=== PATIENT | male | born 1985 | race Two or more races ===

== ENCOUNTER 2018-05-07 22:18 | Emergency (ER) | payer SELFPAY ==
[~2018-05-07] VITALS: Ht 170.2 cm; Wt 63.5 kg
[2018-05-07] MEDS ORDERED: fentaNYL PF VIAL 100 MCG/2 ML VIAL IV ONE (23:30)
[2018-05-08] MEDS ORDERED: KETAMINE HCL 500 MG/10 ML VIAL. IV ONE
[2018-05-08] MEDS ORDERED: IV NORMAL SALINE 1000ML BAG 1,000 ML IV ONE
[2018-05-08] MEDS ORDERED: fentaNYL PF VIAL 100 MCG/2 ML VIAL IV ONE
--- NOTE | 2018-05-08 00:06 | RAD ---
Examination: WRIST 3V LEFT History: LEFT WRIST PAIN AFTER FALL Comparison/Correlation: None Findings: Total 3 images of the left wrist were obtained. Transverse comminuted fracture through the distal radial metaphysis is present. Volar angulation is noted. Dorsal displacement of the distal fracture fragments by one half of the metaphysis noted. Intra-articular extension noted. Carpal bones are unremarkable on images provided. Impression: Displaced distal radial metaphyseal comminuted fracture with intra-articular extension. Electronically signed by: Polo Andres MD (05/08/2018 12:02 AM) [facility]
--- NOTE | 2018-05-08 00:13 | PHYS DOC ---
Past Medical History Past Medical History: No Pertinent History Past Surgical History: No Surgical History Alcohol Use: Occasionally Drug Use: None Adult General Chief Complaint Chief Complaint: UPPER EXTREMITY INJURY HPI HPI 32-year-old male presents with left wrist pain and deformity status post mechanical slip and fall approximate 6 feet landing on his arm which occurred at 1300 today. Patient denies head trauma or loss of consciousness. Denies neck pain. Patient primarily speaks Montenegrin and the use of a phone baggage handler was utilized. Patient reports he taping his wrist to add support. Review of Systems Review of Systems Constitutional: Denies fever or chills [] Eyes: Denies change in visual acuity, redness, or eye pain [] HENT: Denies nasal congestion or sore throat [] Respiratory: Denies cough or shortness of breath [] Cardiovascular: Denies chest pain or palpitations GI: Denies abdominal pain, nausea, vomiting, or diarrhea [] : Denies dysuria or hematuria [] Musculoskeletal: Denies back pain; reports left wrist pain Integument: Denies rash or skin lesions [] Neurologic: Denies headache, focal weakness or sensory changes [] Complete systems were reviewed and found to be within normal limits, except as documented in this note. Current Medications Current Medications Current Medications Medications (Trade) Dose Ordered Sig/Crispin Start Time Stop Time Status Last Admin Dose Admin Fentanyl Citrate (Fentanyl 2ml Vial) 75 mcg 1X ONCE 05/08/18 00:00 05/08/18 00:01 DC 05/08/18 00:44 75 MCG Ketamine HCl (Ketamine) 25 mg 1X ONCE 05/08/18 01:30 05/08/18 01:31 DC 05/08/18 00:48 25 MG Midazolam HCl (Versed) 5 mg STK-MED ONCE 05/08/18 00:53 05/08/18 00:55 DC Sodium Chloride 1,000 ml @ 1,000 mls/hr 1X ONCE 05/08/18 00:00 05/08/18 00:59 DC 05/08/18 00:44 1,000 MLS/HR Allergies Allergies Allergies Coded Allergies Type Severity Reaction Last Updated Verified No Known Drug Allergies 05/07/18 No Physical Exam Physical Exam Constitutional: Well developed, well nourished, no acute distress, non-toxic appearance. [] HENT: Normocephalic, atraumatic, oropharynx moist Eyes: Conjunctiva normal, no discharge. [] Neck: Normal range of motion, no tenderness, supple Cardiovascular: Heart rate regular rhythm, CR < 2sec Lungs & Thorax: Bilateral breath sounds clear to auscultation [] Abdomen: Soft, no tenderness Skin: Warm, dry, no erythema, ecchymosis and swelling noted to left distal wrist Back: No midline tenderness, no CVA tenderness. [] Extremities: Left wrist deformity noted, Left radial pulse +2, CR < 2sec Neurologic: Alert and oriented X 3, normal motor function, normal sensory function, no focal deficits noted. [] Psychologic: Affect normal, judgement normal, mood normal. [] Current Patient Data Vital Signs Vital Signs Date Time Temp Pulse Resp B/P (MAP) Pulse Ox O2 Delivery O2 Flow Rate FiO2 05/08/18 01:20 85 18 124/76 (92) 98 Room Air 05/08/18 01:05 2.0 05/08/18 00:41 97.9 98.0 EKG EKG [] Radiology/Procedures Radiology/Procedures PROCEDURE: WRIST 3V LEFT Examination: WRIST 3V LEFT History: LEFT WRIST PAIN AFTER FALL Comparison/Correlation: None Findings: Total 3 images of the left wrist were obtained. Transverse comminuted fracture through the distal radial metaphysis is present. Volar angulation is noted. Dorsal displacement of the distal fracture fragments by one half of the metaphysis noted. Intra-articular extension noted. Carpal bones are unremarkable on images provided. Impression: Displaced distal radial metaphyseal comminuted fracture with intra-articular extension. Electronically signed by: Polo Anders MD (05/08/2018 12:02 AM) [facility] Course & Med Decision Making Course & Med Decision Making Pertinent Imaging studies reviewed. (See chart for details) Patient presents with report of mechanical slip and fall with deformity to left wrist. Wrist neurovascularly intact. X-ray obtained with findings consistent for radial fracture and dislocation. Moderate sedation performed with manipulation of wrist and splint placement. Repeat x-ray with interval improvement. Patient stable for discharge with outpatient follow-up with PCP/ orthopedics. Orthopedic referral provided. Discussed findings and plan with patient, who acknowledges understanding and agreement. Dragon Disclaimer Dragon Disclaimer This electronic medical record was generated, in whole or in part, using a voice recognition dictation system. Departure Departure Impression: Primary Impression: Wrist fracture, left Disposition: 01 HOME, SELF-CARE Condition: STABLE Referrals: NO PCP (PCP) MARCELA LOCKWOOD MD Patient Instructions: Sedation or General Anesthesia, Adult, Care After, Splint Care, [id number], Wrist Fracture, Fzpf-[id number] Scripts Hydrocodone/Apap 5-325 (NORCO 5-325 TABLET) 1 Each Tablet 0.5-1 TAB PO PRN Q6HRS PRN for PAIN, #10 TAB 0 Refills Prov: DONNELL GIRALDO DO 05/08/18 MODERATE SEDATION ASSESSMENT RISKS/ALTERNATIVES Risks/Alternatives Risks and alternatives of this type of sedation and procedure discussed with: RISK/ALTERNATIVES: Patient H & P ON CHART H & P H & P on chart and reviewed for co-morbid conditions and appropriate labs. H&P ON CHART: Yes STATUS PREG STATUS ASSESSED: N/A MEDS/ALLERGIES REVIEWED Meds/Allergies Reviewed Medications and Allergies including time and route of recently administered narcotics and sedatives. MEDS/ALLERGIES REVIEWED: Yes ASA RATING ASA RATING: I AIRWAY ASSESSMENT Airway Assessment Airway patency, oral function limitations, presence of caps, crowns, dentures, partials, and ability to extend neck assessed. AIRWAY ASSESSMENT: Yes MALLAMPATI SCORE MALLAMPATI SCORE: II PRE-SEDATION ASSESSMENT PRE-SEDATION ASSESSMENT: Yes Splinting Splinting : Location: left wrist Hand-Made Type: orthoglass Splint: sugar-tong Pre-Proc Neuro Vasc Exam: normal Post-Proc Neuro Vasc Exam: normal, unchanged from pre-exam Additional Procedures Progress Fracture Reduction of left wrist: Consent signed. Time out completed. Monitors applied. Fentanyl 75mg given by RN and 75mg of Ketamine given by ED physician. Manipulation performed with successful reduction of fracture/ dislocation of left wrist. Splint applied. Repeat XR obtained. Patient tolerated procedure well and without complications. Problem Qualifiers Primary Impression: Wrist fracture, left Encounter type: initial encounter Fracture type: closed Qualified Codes: S62.102A - Fracture of unspecified carpal bone, left wrist, initial encounter for closed fracture DONNELL GIRALDO DO May 08, 2018 00:13
[2018-05-08 00:41] VITALS: BP 118/69
[2018-05-08] MEDS ORDERED: MIDAZOLAM HCL/PF 5 MG/5 ML VIAL. ONE (00:53)
[2018-05-08 01:20] VITALS: BP 124/76
[2018-05-08] MEDS ORDERED: KETAMINE HCL IN NACL, ISO-OSM 50 MG/5 ML SYRINGE IV ONE (01:30)
[2018-05-08] MEDS ORDERED: HYDR-3164 PO (01:47)
--- NOTE | 2018-05-08 08:30 | RAD ---
Examination: 2 views of the left forearm HISTORY: History of postreduction fracture COMPARISON: Radiograph from 05/07/2018 FINDINGS: Comminuted displaced fracture of the distal radius metaphysis again identified. Dorsal displacement of the distal fracture fragment is slightly decreased compared to prior exam. Mild displaced fracture of the ulnar styloid identified. Cast obscures fine bony detail. IMPRESSION: 1. Comminuted displaced fracture of the distal radius metaphysis. Compared to prior exam the dorsal displacement of the distal fracture fragment is minimally improved. 2. Mild displaced fracture of the ulnar styloid identified. Electronically signed by: Lester Salinas MD (05/08/2018 8:25 AM) [id number]
== END 2018-05-08 01:45 | disposition home or self-care (01) ==
LOC: ER 22:18
DX: S62.102A Fracture of unspecified carpal bone, left wrist, initial encounter for closed fracture (principal); S52.612A Displaced fracture of left ulna styloid process, initial encounter for closed fracture; S52.572A Other intraarticular fracture of lower end of left radius, initial encounter for closed fracture; W01.0XXA Fall on same level from slipping, tripping and stumbling without subsequent striking against object, initial encounter; Y93.89 Activity, other specified; Y92.89 Other specified places as the place of occurrence of the external cause; Y99.8 Other external cause status
CPT/HCPCS: 25605; 73090; 73110; 99285; J3010; J3490; J7030; 29125; 96374; 96375; 96376; 99283

== ENCOUNTER 2018-05-22 07:09 | Day surgery (SDC) | payer SELFPAY ==
--- NOTE | 2018-05-21 17:23 | PDOC1 ---
History and Physical Date of Admission Date of Admission 05/22/18 Identification/Chief Complaint Chief Complaint Left wrist fracture Source Source: Chart review History of Present Illness History of Present Illness This 32-year-old right-handed man fell at work. He works in construction. He came to the emergency room the day of the injury which was May 07, 2018. A closed reduction was attempted. He still has intra-articular displacement, and surgery is recommended. He is here for open treatment internal fixation of the wrist fracture Past Medical History Past Medical History No significant medical history Past Surgical History Past Surgical History None Family History Family History Unremarkable Social History Smoke: No Current Medications Current Medications Current Medications Prochlorperazine Edisylate (Compazine) 5 mg PACU PRN PRN IV NAUSEA, MRX1; Start 05/22/18 at 07:00; Stop 05/23/18 at 06:59 Hydromorphone HCl (Dilaudid) 0.5 mg PRN Q10MIN PRN IV SEV PAIN, Second choice; Start 05/22/18 at 07:00; Stop 05/23/18 at 06:59 Lidocaine HCl (Xylocaine-Mpf 1% 2ml Vial) 2 ml PRN 1X PRN ID IV START; Start at 07:00; Stop 05/23/18 at 06:59 Ringer's Solution 1,000 ml @ 30 mls/hr Q24H IV ; Start 05/22/18 at 07:00; Stop 05/22/18 at 18:59 Morphine Sulfate (Morphine Sulfate) 1 mg PRN Q10MIN PRN IV SEVERE PAIN; Start 05/22/18 at 07:00; Stop 05/23/18 at 06:59 Fentanyl Citrate (Fentanyl 2ml Vial) 50 mcg PRN Q5MIN PRN IV MODERATE TO SEVERE PAIN; Start 05/22/18 at 07:00; Stop 05/23/18 at 06:59 Fentanyl Citrate (Fentanyl 2ml Vial) 25 mcg PRN Q5MIN PRN IV MILD PAIN; Start 05/22/18 at 07:00; Stop 05/23/18 at 06:59 Ondansetron HCl (Zofran) 4 mg PRN Q6HRS PRN IV NAUSEA/VOMITING; Start 05/22/18 at 07:00; Stop 05/23/18 at 06:59 Active Scripts Active [place] 5-325 Tablet (Acetaminophen/Hydrocodone Bitart) 1 Each Tablet 0.5-1 Tab PO PRN Q6HRS PRN Allergies Allergies: Coded Allergies: No Known Drug Allergies (Unverified , 05/18/18) ROS General: No: Chills, Night Sweats, Fatigue PSYCHOLOGICAL ROS: No: Anxiety, Depression Eyes: No Double vision HEENT: No: Heacaches Hematological and Lymphatic: No: Bleeding Problems Respiratory: No: Cough, Shortness of breath, SOB with excertion Cardiovascular: No Chest Pain Gastrointestinal: No Nausea, No Vomiting (never sought but), No Diarrhea, No Constipation Genitourinary: No Dysuria, No Hematuria Musculoskeletal: Yes Joint Pain Physical Exam General: Alert, Cooperative, No acute distress HEENT: Atraumatic Lungs: Normal air movement Heart: RRR ([place]) Extremities: No clubbing, No cyanosis, Other ( The wrist is in a splint which was not removed for the exam. There is no evidence of specific neurovascular injury with examination of the fingertips. Capillary refill is normal. Pulse is not assessable due to the splint. Light touch sensation is intact. There is no tenderness at the elbow. The skin is reported as intact over the fracture. ) Images Images [facility] [id number] [place], [place] [id number] IMAGING REPORT Signed PATIENT: WILFRIDO INFANTE ACCOUNT: [id number] : 1985 LOCATION: ER AGE: 32 SEX: M EXAM STATUS: REG ER ORD. PHYSICIAN: DONNELL GIRALDO DO REASON: pain s/p fall PROCEDURE: WRIST 3V LEFT Examination: WRIST 3V LEFT History: LEFT WRIST PAIN AFTER FALL Comparison/Correlation: None Findings: Total 3 images of the left wrist were obtained. Transverse comminuted fracture through the distal radial metaphysis is present. Volar angulation is noted. Dorsal displacement of the distal fracture fragments by one half of the metaphysis noted. Intra-articular extension noted. Carpal bones are unremarkable on images provided. Impression: Displaced distal radial metaphyseal comminuted fracture with intra-articular extension. Electronically signed by: Polo Anders MD (05/08/2018 12:02 AM) [facility] DICTATED and SIGNED BY: MARY LOMELI MD DATE: 05/08/18 0000 VTE Prophylaxis Ordered VTE Prophylaxis Devices: Yes VTE Pharmacological Prophylaxi: Yes Assessment/Plan Assessment/Plan He has a markedly displaced intra-articular distal radius fracture. This does not do well with nonoperative treatment and he would likely have permanent severe dysfunction of the wrist if this is treated nonoperatively. There is intra-articular displacement, and open treatment with internal fixation is the recommended treatment. I discussed that with him, that the goal is to get him back to near normal function. It's unlikely he will have 100% normal function since there is intra-articular involvement, but he would likely have a functional result with surgery. There are risks of surgery which we discussed such as need for hardware removal, infection, bleeding, tendon injury, neurovascular injury, arthritis, stiffness, pain, weakness, or other potential surgical or anesthetic complications. all of his questions about surgery were answered and he desires to proceed. MARCELA LOCKWOOD MD May 21, 2018 17:23
[~2018-05-22] VITALS: Ht 167.6 cm; Wt 66.2 kg
[~2018-05-22 07:09] MED LIST: HYDR-3164 PO; HYDROmorphone 2 MG/ML VIAL IV PRN; IV RINGERS,LACTATED 1000ML 1,000 ML IV SCH; LIDOCAINE 1% PF 2 ML VIAL. ID PRN; MORPHINE SULFATE 4 MG/ML VIAL. IV PRN; ONDANSETRON PF 4 MG/2 ML VIAL. IV PRN; PROCHLORPERAZINE 10 MG/2 ML VIAL. IV PRN; fentaNYL PF VIAL 100 MCG/2 ML VIAL IV PRN
[2018-05-22] MEDS ORDERED: LIDOCAINE 2% PF Vial for OR 5 ML VIAL. ONE (08:34)
[2018-05-22] MEDS ORDERED: MIDAZOLAM HCL/PF 2 MG/2 ML VIAL. ONE (08:34)
[2018-05-22] MEDS ORDERED: fentaNYL PF VIAL 100 MCG/2 ML VIAL ONE ×3 (08:34→11:48)
[2018-05-22] MEDS ORDERED: ONDANSETRON PF 4 MG/2 ML VIAL. ONE (08:35)
[2018-05-22] MEDS ORDERED: PROPOFOL 20 ML IV ONE ×2 (08:35→10:37)
[2018-05-22] MEDS ORDERED: DEXAMETHASONE SOD PHOS 20 MG/5 ML VIAL. ONE (08:35)
[2018-05-22] MEDS ORDERED: BUPIVAC MPF-EPI 0.5%-1:200000 30 ML VIAL. ONE (08:57)
[2018-05-22] MEDS ORDERED: SEVOFLURANE 61 TO 120 MINUTES. IH ONE (10:28)
--- NOTE | 2018-05-22 11:48 | PDOC4 ---
Operative Note Operative Note Date of procedure: May 22, 2018 Preoperative diagnosis: Other intra-articular fracture of lower end of left radius, initial encounter for closed fracture S52.572A Postoperative diagnosis: Same. Procedure: left wrist open treatment of distal radial intra-articular fracture with internal fixation of 3 or more fragments, CPT 89302 Surgeon: Marcela Lockwood MD. Window And Siding Craftsman: ALVIN Leonardo (Annie) Anesthesia: General Estimated blood loss: 25 mL Complications: None Specimens: None Drains: None Tourniquet time: 40 minutes Tourniquet pressure: 275 mm Hg Implants: Acumed Acu-Loc 2 Plating System Indications for procedure: The patient is a 32 -year-old who fell fracturing the left wrist. X-rays showed an intraarticular fracture with displacement and shortening. I recommended open treatment with internal fixation. We talked about potential risks of surgery such as bleeding, infection, stiffness, need for hardware removal or other potential surgical or anesthetic complications. The patient stated understanding of the risks, benefits and alternatives. Written consent was obtained and the patient desired to proceed with surgery. PROCEDURE IN DETAIL: The patient was identified in the preoperative holding area. The correct left wrist was marked by me. The patient was taken to the operating room, where a general anesthetic was used. Preoperative antibiotics were given intravenously. A timeout procedure was performed. A padded tourniquet was placed on the upper left arm. The limb was prepared with Chloraprep Surgical Solution, and sterile drapes were applied. An Esmarch bandage was used to exsanguinate the limb and the tourniquet was inflated. The volar approach of [place] was used distally. Sharp dissection was used and Bovie electrocautery was used as needed for hemostasis. The flexor carpi radialis tendon was retracted ulnarly to protect the median nerve. The brachioradialis was retracted radially to protect the radial artery. My paraprofessional education assistant held small Hohmann retractors on the radial side of the distal fragment and ulnar side of the proximal fragment to help maintain reduction. A Weitlaner retractor was also placed. Subperiosteal dissection of the pronator quadratus was performed after an L incision was made and the muscle was reflected across the fracture site. The fracture was easily identified but markedly displaced, comminuted and unstable. I performed a reduction, and using longitudinal traction, palmar angulation and ulnar deviation. While my paraprofessional education assistant held the reduction, I placed a Purnima wire for preliminary fixation. The volar lunate facet fracture was fixated with a K wire which was left in place as part of the fixation for stabilization of that fragment. The image intensifier was used throughout the procedure. All of the images were interpreted intraoperatively by me. I used the left distal fixation narrow width plate. I placed a cortical screw proximally and used the image intensifier to adjust the position of the plate. I then applied distal nonlocking screws for compression to the bone to the plate, followed by locking screws distally. I placed additional cortex locking screws proximally. I confirmed the intraarticular reduction the image intensifier. After satisfactory reduction and satisfactory fixation with all the screws, final images were taken. Copious irrigation was used. The tourniquet was released and Bovie electrocautery was used for hemostasis. Local anesthetic was injected. The incision was closed with 3-0 Vicryl in the subcutaneous tissues and 3-0 Prolene in the skin. Xeroform and a sterile dressing and a volar splint were applied. Needle and sponge counts were correct. There were no apparent complications. MARCELA LOCKWOOD MD May 22, 2018 11:48
[2018-05-22] MEDS: fentaNYL PF VIAL 100 MCG/2 ML VIAL IV PRN ×2 (11:54→12:29)
[2018-05-22] MEDS ORDERED: OXYC1TAB15 PO (11:57)
[2018-05-22] MEDS ORDERED: PROM25TA10 PO (11:58)
[2018-05-22] MEDS ORDERED: SEVOFLURANE > 120 MINUTES. IH ONE (12:11)
[2018-05-22] MEDS ORDERED: oxyCODONE/APAP 5/325 1 TAB TABLET PO ONE (12:45)
[2018-05-22 12:54] VITALS: BP 132/74
== END 2018-05-22 12:54 | disposition home or self-care (01) ==
LOC: SURG 07:09
PROVIDERS: ATTEND Orthopaedic Surgery
DX: S52.572A Other intraarticular fracture of lower end of left radius, initial encounter for closed fracture (principal); W19.XXXA Unspecified fall, initial encounter; Y93.89 Activity, other specified; Y92.89 Other specified places as the place of occurrence of the external cause; Y99.8 Other external cause status; Z79.899 Other long term (current) drug therapy
CPT/HCPCS: 25609; A7015; C1713; J0696; J1100; J2001; J2250; J2405; J2704; J3010; J3490